=== PATIENT | male | born 1960 | race Caucasian/White ===

== ENCOUNTER 2022-02-09 13:01 | Emergency (ER) | payer BC ==
[~2022-02-09] VITALS: Ht 193 cm; Wt 125.0 kg
[2022-02-09 13:29] VITALS: BP 147/87
[2022-02-09] MEDS ORDERED: OMNI-PAC300 MG PO ×2 (13:29→13:35)
[2022-02-09] MEDS ORDERED: PREDNISONE50 MG PO (13:29)
[2022-02-09] MEDS ORDERED: SYNTHROID25 MCG PO (13:34)
[2022-02-09] MEDS ORDERED: TAMSULOSIN0.4 MG PO (13:34)
[2022-02-09 13:37] VITALS: BP 147/87
== END 2022-02-09 13:42 | disposition home or self-care (01) | DRG 918 ==
LOC: ED 13:01
DX: T63.441A Toxic effect of venom of bees, accidental (unintentional), initial encounter (principal)